=== PATIENT | male | born 1980 | race Caucasian/White ===

== ENCOUNTER → 2020-05-23 16:39 | Outpatient (CLI) | payer BC, SELFPAY ==
--- NOTE | ~2020-05-23 | XR_ITS ---
EXAMINATION: XR chest 2V EXAM DATE: 05/23/2020 17:08 INDICATION: COVID 19 positive. Cough. TECHNIQUE: Frontal and lateral projections of the chest obtained and reviewed. There is no prior jacquelin dy for comparison. FINDINGS: The lungs are clear. There are no pleural effusions. The cardiomediastinal silhouette is within normal limits. There is no pneumothorax suspected. The bones and soft tissues are unremarkab le. IMPRESSION: No acute cardiopulmonary findings. Reviewed, dictated and finalized at location A.
== END ==
PROVIDERS: Visit Provider Nurse Practitioner Adult Health
DX: R05 Cough (principal)
CPT/HCPCS: 71046

== ENCOUNTER → 2021-10-24 08:21 | Outpatient (CLI) | payer BC, SELFPAY ==
--- NOTE | ~2021-10-24 | XR_ITS ---
XR finger 5th LT min 2V 10/24/2021 08:38 Indication: Left finger pain Procedure: 4 views left fifth finger Comparison: No prior studies for comparison. Findings: There is a comminuted intra-articular fracture of the fifth distal phalanx with mild ventra l displacement and angulation. Soft tissue swelling. No foreign bodies. Impression: 1: Comminuted mildly displaced intra-articular fracture left fifth distal phalanx. Reviewed, dictated and finalized at location B. Impression: 1: Comminuted mildly displaced intra-articular fracture left fifth distal phala nx.
== END ==
PROVIDERS: Visit Provider Nurse Practitioner Adult Health
DX: S62.637A Displaced fracture of distal phalanx of left little finger, initial encounter for closed fracture (principal); X58.XXXA Exposure to other specified factors, initial encounter
CPT/HCPCS: 73140

== ENCOUNTER → 2021-11-30 07:20 | Outpatient (CLI) | payer BC, SELFPAY ==
--- NOTE | ~2021-11-30 | XR_ITS ---
EXAMINATION: XR finger 5th LT min 2V DATE: 11/30/2021 07:49 INDICATION: Left hand fifth digit pain. TECHNIQUE: 4 views of left hand fifth digit were obtained. COMPARISON: Left hand fifth digit radiographs 10/24/2021 FINDINGS: There is an oblique fracture of base of fifth distal phalanx with likely involvement of the articular surface. The distal fracture fragment demonstrates 15 degrees palmar angulation with a fra cture gap measuring 1 mm dorsally. No visible callus. There is a bone fragment at ulnar aspect of fif th proximal interphalangeal joint, likely chronic. 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 IMPRESSION: 1. Oblique fracture of base of fifth distal phalanx. Reviewed, dictated and finalized at location B.
== END ==
PROVIDERS: PCP Nurse Practitioner Adult Health; Visit Provider Nurse Practitioner Adult Health
DX: S62.637A Displaced fracture of distal phalanx of left little finger, initial encounter for closed fracture (principal); X58.XXXA Exposure to other specified factors, initial encounter
CPT/HCPCS: 73140